=== PATIENT | female | born 1995 | race Caucasian/White ===

== ENCOUNTER 2016-09-28 11:26 | Emergency (ER) | payer SELFPAY ==
--- NOTE | 2016-09-28 11:54 | EDM.PDOC ---
ED HPI GI/ABDOMINAL - General Chief Complaint: Abdominal Pain Stated Complaint: STOMACH PAIN Time Seen by Provider: 09/28/16 11:31 Source of Information: Reports: Patient History Limitations: Reports: No limitations - History of Present Illness INITIAL COMMENTS - FREE TEXT/NARRATIVE: History of present illness: [] Patient started having right upper and lower abdominal pain one week ago patient states it improves when she becomes a dull pain from a sharp pain. She denies any fevers, chills, nausea, vomiting or diarrhea. Patient states she has greater than one week late for her period and usually is regular. She has taken 4 tests and all have been negative, with the last one done 2 days ago. Review of systems: As per history of present illness and below otherwise all systems reviewed and negative. Past medical history: As per history of present illness and as reviewed below otherwise noncontributory. Surgical history: As per history of present illness and as reviewed below otherwise noncontributory. Social history: No reported history of drug or alcohol abuse. Family history: As per history of present illness and as reviewed below otherwise noncontributory. Physical exam: General: Well developed, well nourished in NAD HEENT: Atraumatic, normocephalic, pupils reactive, negative for conjunctival pallor or scleral icterus, mucous membranes moist, throat clear, neck supple, nontender, trachea midline. Lungs: Clear to auscultation, breath sounds equal bilaterally, chest nontender. Heart: S1S2, regular, negative for clicks, rubs, or JVD. Abdomen: Soft, nondistended, nontender. Negative for masses or hepatosplenomegaly. Negative for costovertebral tenderness. Pelvis: Stable nontender. Genitourinary: Deferred. Rectal: Deferred. Extremities: Atraumatic, negative for cords or calf pain. Neurovascular unremarkable. Neuro: Awake, alert, oriented. Cranial nerves II through XII unremarkable. Cerebellum unremarkable. Motor and sensory unremarkable throughout. Exam nonfocal. Diagnostics: [] Labs including CBC chemistry UA and test done which are negative Therapeutics: [] Impression: [], Abdominal Pain, likely GERD Plan: [] Pepcid twice a day for 2 weeks all up PMD return if symptoms worsen Definitive disposition and diagnosis as appropriate pending reevaluation and review of above. - Related Data Allergies/ADRs: Allergies Allergy/AdvReac Type Severity Reaction Status Date / Time No Known Allergies Allergy Verified 09/28/16 11:39 Home Meds: Home Meds . [No Known Home Meds] 09/28/16 [History] Past Medical History [employer] History: Reports: - Past Surgical History Female Surgical History: Reports: section Social & Family History - Family History Family Medical History: Noncontributory - Tobacco Use Smoking Status *Q: Never Smoker - Alcohol Use Days Per Week of Alcohol Use: 2 Number of Drinks Per Day: 2 Total Drinks Per Week: 4 - Recreational Drug Use Recreational Drug Use: No ED ROS GENERAL - Review of Systems Review Of Systems: See Below (See history of present illness) ED EXAM, GI/ABD - Physical Exam Exam: See Below (See history of present illness) Course - Vital Signs Last Recorded V/S: Last Vital Signs Temp 36.4 C 09/28/16 11:39 Pulse 84 09/28/16 11:39 Resp 18 09/28/16 11:39 BP 106/65 09/28/16 11:39 Pulse Ox 99 09/28/16 11:39 - Orders/Labs/Meds Labs: Laboratory Tests 09/28/16 09/28/16 09/28/16 Range/Units 11:45 11:45 11:55 WBC 8.67 (4.0-11.0) K/uL RBC 4.35 (4.30-5.90) M/uL Hgb 13.2 (12.0-16.0) g/dL Hct 39.9 (36.0-46.0) % MCV 91.7 (80.0-98.0) fL MCH 30.3 (27.0-32.0) pg MCHC 33.1 (31.0-37.0) g/dL RDW Std Deviation 49.2 (28.0-62.0) fl RDW Coeff of Ismael 15 (11.0-15.0) % Plt Count 239 (150-400) K/uL MPV 9.40 (7.40-12.00) fL Neut % (Auto) 64.6 (48.0-80.0) % Lymph % (Auto) 25.3 (16.0-40.0) % B[place] % (Auto) 5.1 (0.0-15.0) % Eos % (Auto) 4.4 (0.0-7.0) % Baso % (Auto) 0.6 (0.0-1.5) % Neut # (Auto) 5.6 (1.4-5.7) K/uL Lymph # (Auto) 2.2 (0.6-2.4) K/uL Bucks # (Auto) 0.4 (0.0-0.8) K/uL Eos # (Auto) 0.4 (0.0-0.7) K/uL Baso # (Auto) 0.1 (0.0-0.1) K/uL Nucleated RBC % 0.0 /100WBC Nucleated RBCs # 0 K/uL Sodium (136-146) mmol/L Potassium (3.5-5.1) mmol/L Chloride (98-110) mmol/L Carbon Dioxide (21-31) mmol/L BUN (6.0-23.0) mg/dL Creatinine (0.6-1.5) mg/dL Est Cr Clr Drug Dosing mL/min Estimated GFR (MDRD) ml/min Glucose (60-110) mg/dL Calcium (8.8-10.8) mg/dL Total Bilirubin (0.1-1.5) mg/dL AST (5-40) IU/L ALT (8-54) IU/L Alkaline Phosphatase (40-150) Total Protein (6.0-8.0) g/dL Albumin (3.5-5.0) g/dL Globulin (2.0-3.5) g/dL Albumin/Globulin Ratio (1.3-2.8) Lipase (7-80) U/L Urine Color YELLOW Urine Appearance SLT CLOUDY Urine pH 6.0 (5.0-8.0) Ur Specific [place] 1.025 (1.001-1.035) Urine Protein NEGATIVE (NEGATIVE) mg/dL Urine Glucose (UA) NEGATIVE (NEGATIVE) mg/dL Urine Ketones NEGATIVE (NEGATIVE) mg/dL Urine Occult Blood NEGATIVE (NEGATIVE) Urine Nitrite NEGATIVE (NEGATIVE) Urine Bilirubin NEGATIVE (NEGATIVE) Urine Urobilinogen 0.2 (<2.0) EU/dL Ur Leukocyte Esterase SMALL (NEGATIVE) Urine RBC 0-2 (0-2/HPF) Urine WBC 1-3 (0-5/HPF) Ur Epithelial Cells MODERATE (NONE-FEW) Amorphous Sediment FEW (NEGATIVE) Urine Bacteria FEW (NEGATIVE) Urine HCG, Qual NEGATIVE (NEGATIVE) 09/28/16 Range/Units 11:55 WBC (4.0-11.0) K/uL RBC (4.30-5.90) M/uL Hgb (12.0-16.0) g/dL Hct (36.0-46.0) % MCV (80.0-98.0) fL MCH (27.0-32.0) pg MCHC (31.0-37.0) g/dL RDW Std Deviation (28.0-62.0) fl RDW Coeff of Ismael (11.0-15.0) % Plt Count (150-400) K/uL MPV (7.40-12.00) fL Neut % (Auto) (48.0-80.0) % Lymph % (Auto) (16.0-40.0) % Bucks % (Auto) (0.0-15.0) % Eos % (Auto) (0.0-7.0) % Baso % (Auto) (0.0-1.5) % Neut # (Auto) (1.4-5.7) K/uL Lymph # (Auto) (0.6-2.4) K/uL Bucks # (Auto) (0.0-0.8) K/uL Eos # (Auto) (0.0-0.7) K/uL Baso # (Auto) (0.0-0.1) K/uL Nucleated RBC % /100WBC Nucleated RBCs # K/uL Sodium 140 (136-146) mmol/L Potassium 4.0 (3.5-5.1) mmol/L Chloride 109 (98-110) mmol/L Carbon Dioxide 24 (21-31) mmol/L BUN 15 (6.0-23.0) mg/dL Creatinine 0.7 (0.6-1.5) mg/dL Est Cr Clr Drug Dosing 112.83 mL/min Estimated GFR (MDRD) > 60.0 ml/min Glucose 78 (60-110) mg/dL Calcium 9.1 (8.8-10.8) mg/dL Total Bilirubin 1.0 (0.1-1.5) mg/dL AST 12 (5-40) IU/L ALT 11 (8-54) IU/L Alkaline Phosphatase 65 (40-150) Total Protein 7.3 (6.0-8.0) g/dL Albumin 4.3 (3.5-5.0) g/dL Globulin 3.0 (2.0-3.5) g/dL Albumin/Globulin Ratio 1.4 (1.3-2.8) Lipase 37 (7-80) U/L Urine Color Urine Appearance Urine pH (5.0-8.0) Ur Specific [place] (1.001-1.035) Urine Protein (NEGATIVE) mg/dL Urine Glucose (UA) (NEGATIVE) mg/dL Urine Ketones (NEGATIVE) mg/dL Urine Occult Blood (NEGATIVE) Urine Nitrite (NEGATIVE) Urine Bilirubin (NEGATIVE) Urine Urobilinogen (<2.0) EU/dL Ur Leukocyte Esterase (NEGATIVE) Urine RBC (0-2/HPF) Urine WBC (0-5/HPF) Ur Epithelial Cells (NONE-FEW) Amorphous Sediment (NEGATIVE) Urine Bacteria (NEGATIVE) Urine HCG, Qual (NEGATIVE) Departure - Departure Time of Disposition: 13:04 Disposition: Home, Self-Care 01 Condition: good Clinical Impression: Abdominal pain Qualifiers: Abdominal location: upper abdomen, unspecified Qualified Code(s): R10.10 - Upper abdominal pain, unspecified Referrals: PCP,None [Primary Care Provider] - Forms: ED Department Discharge Additional Instructions: The following information is given to patients seen in the emergency department who are being discharged to home. This information is to outline your options for follow-up care. We provide all patients seen in our emergency department with a follow-up referral. The need for follow-up, as well as the timing and circumstances, are variable depending upon the specifics of your emergency department visit. If you don't have a primary care physician on staff, we will provide you with a referral. We always advise you to contact your personal physician following an emergency department visit to inform them of the circumstance of the visit and for follow-up with them and/or the need for any referrals to a consulting specialist. The emergency department will also refer you to a specialist when appropriate. This referral assures that you have the opportunity for follow-up care with a specialist. All of these measure are taken in an effort to provide you with optimal care, which includes your follow-up. Under all circumstances we always encourage you to contact your private physician who remains a resource for coordinating your care. When calling for follow-up care, please make the office aware that this follow-up is from your recent emergency room visit. If for any reason you are refused follow-up, please contact the [facility] Emergency Department at and asked to speak to the emergency department charge nurse. Take Pepcid twice a day for 2 weeks follow up with her PMD [facility] [address] [place] [id number]
[2016-09-28 12:30] LABS: CHLORIDE,CL 109 mmol/L (98-110); SODIUM,NA 140 mmol/L (136-146)
[2016-09-28 13:38] VITALS: BP 107/59
== END 2016-09-28 13:39 | disposition home or self-care (01) ==
LOC: MW.ED 11:26
DX: R10.11 Right upper quadrant pain (principal); R10.31 Right lower quadrant pain
CPT/HCPCS: 36415; 80053; 81001; 81025; 83690; 85025; 99283; 99284

== ENCOUNTER 2017-05-29 20:40 | Emergency (ER) | payer SELFPAY ==
[2017-05-29] MEDS ORDERED: Aspirin 81 MG Tab.Chew PO ONE (20:55)
[2017-05-29] MEDS ORDERED: Sodium Chloride 0.9% 2.5 ML Syringe FLUSH PRN (20:55)
[2017-05-29] MEDS ORDERED: Ketorolac 30 MG/ML SDV IVPUSH ONE (20:55)
[2017-05-29] MEDS ORDERED: Sodium Chloride 0.9% 10 ML Syringe FLUSH PRN (20:55)
--- NOTE | 2017-05-29 20:59 | EDM.PDOC ---
ED HPI GENERAL MEDICAL PROBLEM - General Stated Complaint: CHETS PAIN Time Seen by Provider: 05/29/17 20:47 - History of Present Illness INITIAL COMMENTS - FREE TEXT/NARRATIVE: HISTORY AND PHYSICAL: History of present illness: The patient is a 22-year-old female who is adopted and has no knowledge of her family history but also has no social history and no pre-existing medical problems and presents with complaints of bilateral chest pain that started on the left and is now on the right as well one week ago. The patient says she has not had any trauma or upper respiratory symptoms no cough no fever no shortness of breath no abdominal pain vomiting or diarrhea. Patient says the pain started to the left of the sternum and then traveled laterally then went down her left side around and is now crossing over to the right side. She has taken some over- the-counter Tylenol and ibuprofen and is not gone away. She has no leg pain or swelling has been eating and drinking normally. Patient denies any smoking history or drug use and her has a vasectomy and she denies and has had regular periods. Patient says that she has difficulty sleeping because the pain is constant and waxes and wanes in intensity. Patient has never had any cardiac workup and does not know her cholesterol or lipids. Review of systems: As per history of present illness and below otherwise all systems reviewed and negative. Past medical history: As per history of present illness and as reviewed below otherwise noncontributory. Surgical history: As per history of present illness and as reviewed below otherwise noncontributory. Social history: No reported history of drug or alcohol abuse. Family history: As per history of present illness and as reviewed below otherwise noncontributory. Physical exam: Gen.: Well-developed well-nourished thin female who is nontoxic and vital signs of been reviewed by me. HEENT: Atraumatic, normocephalic, negative for conjunctival pallor or scleral icterus, mucous membranes moist, throat clear, neck supple, nontender, trachea midline. Lungs: Clear to auscultation, breath sounds equal bilaterally, chest wall with reproducible tenderness bilaterally at the costochondral areas and extending outward in the upper chest wall areas. There is no crepitus defects or deformities with my exam. She has no worker breathing or sensory muscle use Heart: S1S2, regular, negative for clicks, rubs, or JVD. Abdomen: Soft, nondistended, nontender. Negative for masses or hepatosplenomegaly. NABS Pelvis: Stable nontender. Genitourinary: Deferred. Rectal: Deferred. Extremities: Atraumatic, negative for cords or calf pain. Neurovascular unremarkable. No pedal edema or leg asymmetry Neuro: Awake, alert, oriented. Cranial nerves II through XII unremarkable. Cerebellum unremarkable. Motor and sensory unremarkable throughout. Exam nonfocal. Diagnostics: EKG CBC CMP troponin chest x-ray d-dimer Therapeutics: IV O2 monitor Toradol aspirin I discussed all testing results with the patient and at bedside. As the chest pain has been ongoing for a week I did offer her admission but she would like to follow-up in the clinic. It seems very reproducible in nature so I'll advise nonsteroidal use and close follow-up. Impression: Atypical chest pain/chest wall pain Definitive disposition and diagnosis as appropriate pending reevaluation and review of above. Left Upper Chest Pain Score (Numeric/FACES): 4 - Related Data Allergies Allergy/AdvReac Type Severity Reaction Status Date / Time No Known Allergies Allergy Verified 05/29/17 21:06 Home Meds: Home Meds . 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 ED EXAM, GENERAL - Physical Exam Exam: See Below (See dictation) Course - Vital Signs Last Recorded V/S: Last Vital Signs Temp Pulse 98 05/29/17 21:02 Resp 12 05/29/17 21:02 BP 121/58 L 05/29/17 21:02 Pulse Ox 97 05/29/17 21:02 - Orders/Labs/Meds Orders: Active Orders 24 hr Category Date Time Status Cardiac Monitoring [RC] . DIRECTED Care 05/29/17 20:53 Active EKG Documentation Completion [RC] STAT Care 05/29/17 20:53 Active Oxygen Therapy, ED [RC] ASDIRECTED Care 05/29/17 20:53 Active Pulse Oximetry [RC] ASDIRECTED Care 05/29/17 20:53 Active Chest 1V Frontal [CR] Stat Exams 05/29/17 20:55 Taken Sodium Chloride 0.9% [Saline Flush] Med 05/29/17 20:55 Active 10 ml FLUSH ASDIRECTED PRN Sodium Chloride 0.9% [Saline Flush] Med 05/29/17 20:55 Active 2.5 ml FLUSH ASDIRECTED PRN Saline Lock Insert [OM.PC] Stat Oth 05/29/17 20:53 Ordered Medication Orders Sodium Chloride (Saline Flush) 10 ml FLUSH ASDIRECTED PRN PRN Reason: Keep Vein Open Sodium Chloride (Saline Flush) 2.5 ml FLUSH ASDIRECTED PRN PRN Reason: Keep Vein Open Labs: Laboratory Tests 05/29/17 05/29/17 05/29/17 Range/Units 21:05 21:05 21:05 WBC 6.02 (4.0-11.0) K/uL RBC 3.79 L (4.30-5.90) M/uL Hgb 11.9 L (12.0-16.0) g/dL Hct 34.5 L (36.0-46.0) % MCV 91.0 (80.0-98.0) fL MCH 31.4 (27.0-32.0) pg MCHC 34.5 (31.0-37.0) g/dL RDW Std Deviation 45.2 (28.0-62.0) fl RDW Coeff of Ismael 14 (11.0-15.0) % Plt Count 202 (150-400) K/uL MPV 9.40 (7.40-12.00) fL Neut % (Auto) 57.1 (48.0-80.0) % Lymph % (Auto) 26.2 (16.0-40.0) % [place] % (Auto) 10.8 (0.0-15.0) % Eos % (Auto) 5.6 (0.0-7.0) % Baso % (Auto) 0.3 (0.0-1.5) % Neut # (Auto) 3.4 (1.4-5.7) K/uL Lymph # (Auto) 1.6 (0.6-2.4) K/uL [place] # (Auto) 0.7 (0.0-0.8) K/uL Eos # (Auto) 0.3 (0.0-0.7) K/uL Baso # (Auto) 0.0 (0.0-0.1) K/uL Nucleated RBC % 0.0 /100WBC Nucleated RBCs # 0 K/uL D-Dimer, Quantitative 0.27 (0.0-0.52) mg/LFEU Sodium 141 (136-146) mmol/L Potassium 3.8 (3.5-5.1) mmol/L Chloride 110 (98-110) mmol/L Carbon Dioxide 22 (21-31) mmol/L BUN 21 (6.0-23.0) mg/dL Creatinine 0.7 (0.6-1.5) mg/dL Est Cr Clr Drug Dosing 116.81 mL/min Estimated GFR (MDRD) > 60.0 ml/min Glucose 99 (60-110) mg/dL Calcium 9.1 (8.8-10.8) mg/dL Total Bilirubin 0.6 (0.1-1.5) mg/dL AST 12 (5-40) IU/L ALT 10 (8-54) IU/L Alkaline Phosphatase 46 (40-150) Troponin I < 0.10 (0.0-0.29) NG/ML Total Protein 6.5 (6.0-8.0) g/dL Albumin 4.0 (3.5-5.0) g/dL Globulin 2.5 (2.0-3.5) g/dL Albumin/Globulin Ratio 1.6 (1.3-2.8) Meds: Medications Generic Name Dose Route Start Last Admin Trade Name Freq PRN Reason Stop Dose Admin Sodium Chloride 10 ml 05/29/17 20:55 Saline Flush FLUSH ASDIRECTED PRN Keep Vein Open Sodium Chloride 2.5 ml 05/29/17 20:55 Saline Flush FLUSH ASDIRECTED PRN Keep Vein Open Discontinued Medications Generic Name Dose Route Start Last Admin Trade Name Freq PRN Reason Stop Dose Admin Aspirin 324 mg 05/29/17 20:55 05/29/17 21:02 Aspirin PO 05/29/17 20:56 324 mg ONETIME ONE Administration Ketorolac Tromethamine 30 mg 05/29/17 20:55 05/29/17 21:03 Toradol IVPUSH 05/29/17 20:56 30 mg ONETIME ONE Administration Departure - Departure Time of Disposition: 22:02 Disposition: Home, Self-Care 01 Condition: Good Clinical Impression: Atypical chest pain, Chest wall pain - Discharge Information Additional Instructions: The following information is given to patients seen in the emergency department who are being discharged to home. This information is to outline your options for follow-up care. We provide all patients seen in our emergency department with a follow-up referral. The need for follow-up, as well as the timing and circumstances, are variable depending upon the specifics of your emergency department visit. If you don't have a primary care physician on staff, we will provide you with a referral. We always advise you to contact your personal physician following an emergency department visit to inform them of the circumstance of the visit and for follow-up with them and/or the need for any referrals to a consulting specialist. The emergency department will also refer you to a specialist when appropriate. This referral assures that you have the opportunity for followup care with a specialist. All of these measure are taken in an effort to provide you with optimal care, which includes your followup. Under all circumstances we always encourage you to contact your private physician who remains a resource for coordinating your care. When calling for followup care, please make the office aware that this follow-up is from your recent emergency room visit. If for any reason you are refused follow-up, please contact the [facility] emergency department at and ask to speak to the emergency department charge nurse. [facility] Primary care- Internal Medicine and Family [address] [address] Please call our clinic in the morning for follow-up appointment as we discussed and return to ER as needed and as discussed. Please take 600 mg of ibuprofen every 6-8 hours for the next 24 hours and then just as needed. - My Orders Last 24 Hours: My Active Orders 05/29/17 20:53 Cardiac Monitoring [RC] . DIRECTED EKG Documentation Completion [RC] STAT Oxygen Therapy, ED [RC] ASDIRECTED Pulse Oximetry [RC] ASDIRECTED Saline Lock Insert [OM.PC] Stat 05/29/17 20:55 Chest 1V Frontal [CR] Stat Sodium Chloride 0.9% [Saline Flush] 10 ml FLUSH ASDIRECTED PRN Sodium Chloride 0.9% [Saline Flush] 2.5 ml FLUSH ASDIRECTED PRN - Assessment/Plan Last 24 Hours: My Active Orders 05/29/17 20:53 Cardiac Monitoring [RC] . DIRECTED EKG Documentation Completion [RC] STAT Oxygen Therapy, ED [RC] ASDIRECTED Pulse Oximetry [RC] ASDIRECTED Saline Lock Insert [OM.PC] Stat 05/29/17 20:55 Chest 1V Frontal [CR] Stat Sodium Chloride 0.9% [Saline Flush] 10 ml FLUSH ASDIRECTED PRN Sodium Chloride 0.9% [Saline Flush] 2.5 ml FLUSH ASDIRECTED PRN
[2017-05-29 21:06] VITALS: BP 121/58
[2017-05-29 21:34] LABS: CHLORIDE,CL 110 mmol/L (98-110); SODIUM,NA 141 mmol/L (136-146)
--- NOTE | 2017-05-30 09:57 | CR ---
EXAM DATE: 05/29/17 PATIENT'S AGE: 22 Patient: MICHAEL JOHNSON Facility: [place], [place] Site . Site : 1995 Study: XRay Chest [id number]/[id number] 9:34:36 PM Ordering Physician: Emilie Terry Final Report: CHEST 1 VIEW AP INDICATION: Chest pain and shortness of breath IMPRESSION: Patient is slightly rotated. Some asymmetric increased opacity medial right lung base. Superimposition of markings in rotation could be considered. The medial margin however of the right hemidiaphragm is slightly indistinct. Suggest a lateral view for correlation. The left lung is clear. Heart size and vascularity appear normal. Costophrenic angles are sharp with no pneumothorax. Dictated by Brendan Bianchi MD @ May 29 2017 9:45PM (Electronic Signature) Report Signed by Proxy. DWIGHT
== END 2017-05-29 22:10 | disposition home or self-care (01) ==
LOC: MW.ED 20:40
DX: R07.89 Other chest pain (principal)
CPT/HCPCS: 71010; 80053; 84484; 85025; 85379; 93005; 96374; 99285; A9270; J1885

== ENCOUNTER 2017-08-10 17:41 | Emergency (ER) | payer SELFPAY ==
--- NOTE | 2017-08-10 18:18 | EDM.PDOC ---
ED HPI GENERAL MEDICAL PROBLEM - General Chief Complaint: Genitourinary Problem Stated Complaint: STOMACH PAIN/POSSIBLE KIDNEY STONE Time Seen by Provider: 08/10/17 18:06 Source of Information: Reports: Patient History Limitations: Reports: No Limitations - History of Present Illness INITIAL COMMENTS - FREE TEXT/NARRATIVE: HISTORY AND PHYSICAL: History of present illness: Patient is a 22-year-old female who presents to the emergency room today with complaints of abdominal pain 1 week. States the pain originates in her right flank and wraps to her right upper abdomen. She states she has "kidney infections all the time". She would like a test done today as she states her menstraul period was only 3 days and normal duration of her menses is 5 days. LMP 07/20/2017. States she's been using Tylenol and ibuprofen for pain without relief. Denies any dysuria, constipation or diarrhea. Denies any fever or chills. Denies any nausea, vomiting, chest pain or shortness of breath. Review of systems: As per history of present illness and below otherwise all systems reviewed and negative. Past medical history: As per history of present illness and as reviewed below otherwise noncontributory. Surgical history: As per history of present illness and as reviewed below otherwise noncontributory. Social history: No reported history of drug or alcohol abuse. Family history: As per history of present illness and as reviewed below otherwise noncontributory. Physical exam: General: Well-developed and well-nourished 22-year-old female. Alert and oriented. Nontoxic appearing and in no acute distress. HEENT: Atraumatic, normocephalic, pupils reactive, negative for conjunctival pallor or scleral icterus, mucous membranes moist, throat clear, neck supple, nontender, trachea midline. Lungs: Clear to auscultation, breath sounds equal bilaterally, chest nontender. Heart: S1S2, regular rate and rhythm Abdomen: Soft, nondistended, nontender. Negative for masses or hepatosplenomegaly. Mild costovertebral tenderness to left. Pelvis: Stable nontender. Genitourinary: Deferred. Rectal: Deferred. Extremities: Atraumatic, moves all extremities per self, negative for cords or calf pain. Neurovascular unremarkable. Neuro: Awake, alert, oriented. Cranial nerves II through XII unremarkable. Cerebellum unremarkable. Motor and sensory unremarkable throughout. Exam nonfocal. Diagnostics: UA, urine , CBC, CMP Therapeutics: [] Impression: Abdominal Pain, non-specific Plan: 1. Lab work was all normal today. Symptoms are likely viral in nature. Please have a bland diet for the next 24-48 hours. Encourage fluids to prevent dehydration. 2. May use Tylenol and/or ibuprofen as needed for pain management. Gentle heat may be used for comfort. 3. Follow-up with your primary caregiver in the next 1-2 days. Return to the ED as needed and as discussed Definitive disposition and diagnosis as appropriate pending reevaluation and review of above. Right Upper Abdominal Pain Score (Numeric/FACES): 2 - Related Data Allergies Allergy/AdvReac Type Severity Reaction Status Date / Time No Known Allergies Allergy Verified 08/10/17 18:06 Home Meds: Home Meds . 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 ED EXAM, GI/ABD - Physical Exam Exam: See Below (See dictation) Course - Vital Signs Last Recorded V/S: Last Vital Signs Temp 96.0 F 08/10/17 18:02 Pulse 76 08/10/17 18:02 Resp 18 08/10/17 18:02 BP 106/66 08/10/17 18:02 Pulse Ox 98 08/10/17 18:02 - Orders/Labs/Meds Orders: Active Orders 24 hr Category Date Time Status CULTURE URINE [RM] Stat Lab 08/10/17 18:08 Received Labs: Laboratory Tests 08/10/17 08/10/17 08/10/17 Range/Units 17:43 17:43 19:09 WBC 9.11 (4.0-11.0) K/uL RBC 4.29 L (4.30-5.90) M/uL Hgb 13.7 (12.0-16.0) g/dL Hct 40.3 (36.0-46.0) % MCV 93.9 (80.0-98.0) fL MCH 31.9 (27.0-32.0) pg MCHC 34.0 (31.0-37.0) g/dL RDW Std Deviation 45.5 (28.0-62.0) fl RDW Coeff of Ismael 13 (11.0-15.0) % Plt Count 264 (150-400) K/uL MPV 9.20 (7.40-12.00) fL Neut % (Auto) 70.9 (48.0-80.0) % Lymph % (Auto) 21.8 (16.0-40.0) % Cooke % (Auto) 6.0 (0.0-15.0) % Eos % (Auto) 1.1 (0.0-7.0) % Baso % (Auto) 0.2 (0.0-1.5) % Neut # (Auto) 6.5 H (1.4-5.7) K/uL Lymph # (Auto) 2.0 (0.6-2.4) K/uL Cooke # (Auto) 0.6 (0.0-0.8) K/uL Eos # (Auto) 0.1 (0.0-0.7) K/uL Baso # (Auto) 0.0 (0.0-0.1) K/uL Nucleated RBC % 0.0 /100WBC Nucleated RBCs # 0 K/uL Sodium (136-146) mmol/L Potassium (3.5-5.1) mmol/L Chloride (98-110) mmol/L Carbon Dioxide (21-31) mmol/L BUN (6.0-23.0) mg/dL Creatinine (0.6-1.5) mg/dL Est Cr Clr Drug Dosing mL/min Estimated GFR (MDRD) ml/min Glucose (60-110) mg/dL Calcium (8.8-10.8) mg/dL Total Bilirubin (0.1-1.5) mg/dL AST (5-40) IU/L ALT (8-54) IU/L Alkaline Phosphatase (40-150) Total Protein (6.0-8.0) g/dL Albumin (3.5-5.0) g/dL Globulin (2.0-3.5) g/dL Albumin/Globulin Ratio (1.3-2.8) Urine Color YELLOW Urine Appearance CLEAR Urine pH 6.5 (5.0-8.0) Ur Specific [place]ne 1.020 (1.001-1.035) Urine Protein NEGATIVE (NEGATIVE) mg/dL Urine Glucose (UA) NEGATIVE (NEGATIVE) mg/dL Urine Ketones NEGATIVE (NEGATIVE) mg/dL Urine Occult Blood NEGATIVE (NEGATIVE) Urine Nitrite NEGATIVE (NEGATIVE) Urine Bilirubin NEGATIVE (NEGATIVE) Urine Urobilinogen 0.2 (<2.0) EU/dL Ur Leukocyte Esterase SMALL (NEGATIVE) Urine RBC 0-1 (0-2/HPF) Urine WBC 1-3 (0-5/HPF) Ur Epithelial Cells RARE (NONE-FEW) Urine Bacteria RARE (NEGATIVE) Urine HCG, Qual NEGATIVE (NEGATIVE) 08/10/17 Range/Units 19:09 WBC (4.0-11.0) K/uL RBC (4.30-5.90) M/uL Hgb (12.0-16.0) g/dL Hct (36.0-46.0) % MCV (80.0-98.0) fL MCH (27.0-32.0) pg MCHC (31.0-37.0) g/dL RDW Std Deviation (28.0-62.0) fl RDW Coeff of Ismael (11.0-15.0) % Plt Count (150-400) K/uL MPV (7.40-12.00) fL Neut % (Auto) (48.0-80.0) % Lymph % (Auto) (16.0-40.0) % Cooke % (Auto) (0.0-15.0) % Eos % (Auto) (0.0-7.0) % Baso % (Auto) (0.0-1.5) % Neut # (Auto) (1.4-5.7) K/uL Lymph # (Auto) (0.6-2.4) K/uL Cooke # (Auto) (0.0-0.8) K/uL Eos # (Auto) (0.0-0.7) K/uL Baso # (Auto) (0.0-0.1) K/uL Nucleated RBC % /100WBC Nucleated RBCs # K/uL Sodium 139 (136-146) mmol/L Potassium 4.2 (3.5-5.1) mmol/L Chloride 109 (98-110) mmol/L Carbon Dioxide 22 (21-31) mmol/L BUN 10 (6.0-23.0) mg/dL Creatinine 0.7 (0.6-1.5) mg/dL Est Cr Clr Drug Dosing 121.55 mL/min Estimated GFR (MDRD) > 60.0 ml/min Glucose 85 (60-110) mg/dL Calcium 9.1 (8.8-10.8) mg/dL Total Bilirubin 0.8 (0.1-1.5) mg/dL AST 15 (5-40) IU/L ALT 11 (8-54) IU/L Alkaline Phosphatase 59 (40-150) Total Protein 6.5 (6.0-8.0) g/dL Albumin 3.9 (3.5-5.0) g/dL Globulin 2.6 (2.0-3.5) g/dL Albumin/Globulin Ratio 1.5 (1.3-2.8) Urine Color Urine Appearance Urine pH (5.0-8.0) Ur Specific [place] (1.001-1.035) Urine Protein (NEGATIVE) mg/dL Urine Glucose (UA) (NEGATIVE) mg/dL Urine Ketones (NEGATIVE) mg/dL Urine Occult Blood (NEGATIVE) Urine Nitrite (NEGATIVE) Urine Bilirubin (NEGATIVE) Urine Urobilinogen (<2.0) EU/dL Ur Leukocyte Esterase (NEGATIVE) Urine RBC (0-2/HPF) Urine WBC (0-5/HPF) Ur Epithelial Cells (NONE-FEW) Urine Bacteria (NEGATIVE) Urine HCG, Qual (NEGATIVE) Departure - Departure Time of Disposition: 19:44 Disposition: Home, Self-Care 01 Clinical Impression: Nonspecific abdominal pain - Discharge Information Instructions: Abdominal Pain, Adult Referrals: PCP,None [Primary Care Provider] - Forms: ED Department Discharge Additional Instructions: My general discharge The following information is given to patients seen in the emergency department who are being discharged to home. This information is to outline your options for follow-up care. We provide all patients seen in our emergency department with a follow-up referral. The need for follow-up, as well as the timing and circumstances, are variable depending upon the specifics of your emergency department visit. If you don't have a primary care physician on staff, we will provide you with a referral. We always advise you to contact your personal physician following an emergency department visit to inform them of the circumstance of the visit and for follow-up with them and/or the need for any referrals to a consulting specialist. The emergency department will also refer you to a specialist when appropriate. This referral assures that you have the opportunity for follow-up care with a specialist. All of these measure are taken in an effort to provide you with optimal care, which includes your follow-up. Under all circumstances we always encourage you to contact your private physician who remains a resource for coordinating your care. When calling for follow-up care, please make the office aware that this follow-up is from your recent emergency room visit. If for any reason you are refused follow-up, please contact the [facility] Emergency Department at and asked to speak to the emergency department charge nurse. [facility] [address] [place] [id number] 1. Lab work was all normal today (Negative , No UTI, and No evidence of abdominal infection). Symptoms are likely viral in nature. Please have a bland diet for the next 24-48 hours. Encourage fluids to prevent dehydration. 2. May use Tylenol and/or ibuprofen as needed for pain management. Gentle heat may be used for comfort. 3. Follow-up with your primary caregiver in the next 1-2 days. Return to the ED as needed and as discussed - My Orders Last 24 Hours: My Active Orders 08/10/17 18:08 CULTURE URINE [RM] Stat - Assessment/Plan Last 24 Hours: My Active Orders 08/10/17 18:08 CULTURE URINE [RM] Stat
[2017-08-10 19:39] LABS: CHLORIDE,CL 109 mmol/L (98-110); SODIUM,NA 139 mmol/L (136-146)
[2017-08-10 19:58] VITALS: BP 97/65
== END 2017-08-10 19:59 | disposition home or self-care (01) ==
LOC: MW.ED 17:41
DX: R10.11 Right upper quadrant pain (principal)
CPT/HCPCS: 36415; 80053; 81001; 81025; 85025; 87086; 99283; 99284

== ENCOUNTER 2017-08-22 11:06 | Emergency (ER) | payer BC ==
[2017-08-22 11:16] VITALS: BP 103/70
[2017-08-22] MEDS ORDERED: Benzocaine 20% Topical Spray UD MUCMEM ONE (11:51)
[2017-08-22] MEDS ORDERED: Lidocaine 2% Viscous Solution 15 ML Cup PO ONE (11:51)
--- NOTE | 2017-08-22 11:54 | EDM.PDOC ---
ED HPI GENERAL MEDICAL PROBLEM - General Chief Complaint: ENT Problem Stated Complaint: TOOTHACHE Time Seen by Provider: 08/22/17 11:45 Source of Information: Reports: Patient History Limitations: Reports: No Limitations - History of Present Illness INITIAL COMMENTS - FREE TEXT/NARRATIVE: HISTORY AND PHYSICAL: History of present illness: [Patient comes to the emergency room complaining of tooth pain. Cracked her tooth approximately one year ago. She's had some mild discomfort for the past week but over the past 2 days she's developed swelling to her cheek and gums. She called a local dentist today and they can get her in for an appointment tomorrow but recommended that she be evaluated in the emergency room today. She denies fever and chills chest pain shortness of breath and difficulty breathing. No abdominal pain nausea or vomiting. Last period ended yesterday, she denies . She has not taken any medication for her symptoms.] Review of systems: As per history of present illness and below otherwise all systems reviewed and negative. Past medical history: As per history of present illness and as reviewed below otherwise noncontributory. Surgical history: As per history of present illness and as reviewed below otherwise noncontributory. Social history: No reported history of drug or alcohol abuse. Family history: As per history of present illness and as reviewed below otherwise noncontributory. Physical exam: HEENT: Atraumatic, normocephalic. Face is nontender with palpation. TMs are pearly gutierrez and without erythema bilaterally. Oral mucous membranes are pink and moist. No tonsillar swelling erythema or exudate. Tooth #15 is cracked and shows decay. Surrounding gum tissue is erythematous and swollen. She is tender with palpation over this tooth and gums. No facial tenderness. Lungs: Clear to auscultation, breath sounds equal bilaterally. Heart: S1S2, regular rate and rhythm. Abdomen: Soft, nondistended, nontender. Pelvis: Stable nontender. Genitourinary: Deferred. Rectal: Deferred. Extremities: Neurovascular unremarkable. Neuro: Awake, alert, oriented. Motor and sensory unremarkable throughout. Exam nonfocal. Therapeutics: [Dental balls] Impression: [Dental pain] Plan: [Rx written for amoxicillin 500 mg #32 sig 2 by mouth now, then 13 times daily 0 refills. Tylenol alternating with ibuprofen as needed for discomfort. Dental balls. Follow-up with dentist tomorrow as scheduled. Strict return precautions are reviewed. She is in agreement with today's plan.] Definitive disposition and diagnosis as appropriate pending reevaluation and review of above. Left Tooth/Teeth Pain Score (Numeric/FACES): 6 - Related Data Allergies Allergy/AdvReac Type Severity Reaction Status Date / Time No Known Allergies Allergy Verified 08/22/17 11:16 Home Meds: Home Meds . 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 ED EXAM, ENT - Physical Exam Exam: See Below Course - Vital Signs Last Recorded V/S: Last Vital Signs Temp 98.0 F 08/22/17 11:15 Pulse 58 L 08/22/17 11:15 Resp 18 08/22/17 11:15 BP 103/70 08/22/17 11:15 Pulse Ox 98 08/22/17 11:15 - Orders/Labs/Meds Meds: Medications Discontinued Medications Generic Name Dose Route Start Last Admin Trade Name Gerard PRN Reason Stop Dose Admin Benzocaine 2 each 08/22/17 11:51 Hurricaine One 20% MUCMEM 08/22/17 11:52 ONETIME ONE Lidocaine HCl 15 ml 08/22/17 11:51 Xylocaine 2% Viscous PO 08/22/17 11:52 ONETIME ONE Departure - Departure Time of Disposition: 11:55 Disposition: Home, Self-Care 01 Condition: Good Clinical Impression: Pain, dental - Discharge Information Referrals: PCP,None [Primary Care Provider] - Forms: ED Department Discharge Additional Instructions: The following information is given to patients seen in the emergency department who are being discharged to home. This information is to outline your options for follow-up care. We provide all patients seen in our emergency department with a follow-up referral. The need for follow-up, as well as the timing and circumstances, are variable depending upon the specifics of your emergency department visit. If you don't have a primary care physician on staff, we will provide you with a referral. We always advise you to contact your personal physician following an emergency department visit to inform them of the circumstance of the visit and for follow-up with them and/or the need for any referrals to a consulting specialist. The emergency department will also refer you to a specialist when appropriate. This referral assures that you have the opportunity for follow-up care with a specialist. All of these measure are taken in an effort to provide you with optimal care, which includes your follow-up. Under all circumstances we always encourage you to contact your private physician who remains a resource for coordinating your care. When calling for follow-up care, please make the office aware that this follow-up is from your recent emergency room visit. If for any reason you are refused follow-up, please contact the [facility] emergency department at and asked to speak to the emergency department charge nurse. [facility] [address] [place] [id number] Follow-up with your local primary care provider at the clinic listed above in 48 -72 hours. Follow-up with the dentist as scheduled. Take antibiotic as prescribed. He may alternate Tylenol with ibuprofen as needed for discomfort. Use dental balls. Return to ER as needed as discussed.
== END 2017-08-22 12:07 | disposition home or self-care (01) ==
LOC: MW.ED 11:06
DX: K08.89 Other specified disorders of teeth and supporting structures (principal); K03.81 Cracked tooth; K02.9 Dental caries, unspecified
CPT/HCPCS: 99282; A9270; 99283

== ENCOUNTER 2017-10-05 19:37 | Emergency (ER) | payer BC ==
[2017-10-05] MEDS ORDERED: Lidocaine 2% Viscous Solution 100 ML Bottle PO ONE (19:45)
[2017-10-05] MEDS ORDERED: Benzocaine 20% Topical Spray UD MUCMEM ONE (19:45)
--- NOTE | 2017-10-05 19:45 | EDM.PDOC ---
ED HPI GENERAL MEDICAL PROBLEM - General Chief Complaint: ENT Problem Stated Complaint: TOOTH PAIN Time Seen by Provider: 10/05/17 19:45 Source of Information: Reports: Patient History Limitations: Reports: No Limitations - History of Present Illness INITIAL COMMENTS - FREE TEXT/NARRATIVE: HISTORY AND PHYSICAL: History of present illness: Patient is a 22-year-old female who presents to the emergency room today with complaints of dental pain to the left lower jaw. She states approximately one year ago she had cracked tooth and since that time has been dealing with dental pain. She reports she "can't afford to get it pulled... they want $800". She presents here today looking for pain medication as she states the topical lidocaine/benzocaine (Dental Balls) she received through our ER last month (11/2017) is not helping the discomfort. Review of systems: As per history of present illness and below otherwise all systems reviewed and negative. Past medical history: As per history of present illness and as reviewed below otherwise noncontributory. Surgical history: As per history of present illness and as reviewed below otherwise noncontributory. Social history: No reported history of drug or alcohol abuse. Family history: As per history of present illness and as reviewed below otherwise noncontributory. Physical exam: General: Well-developed and well-nourished 22-year-old female. Alert and oriented. Nontoxic appearing and in no acute distress. HEENT: Atraumatic, normocephalic, pupils equal and reactive bilaterally, negative for conjunctival pallor or scleral icterus, mucous membranes moist, throat clear, neck supple, no obvious gum swelling or erythema noted, dental health is fair, nontender, trachea midline. No drooling or trismus noted. No meningeal signs Lungs: Clear to auscultation, breath sounds equal bilaterally, chest nontender. Heart: S1S2, regular rate and rhythm without overt murmur Abdomen: Soft, nondistended, nontender. Negative for masses or hepatosplenomegaly. Negative for costovertebral tenderness. Pelvis: Stable nontender. Genitourinary: Deferred. Rectal: Deferred. Skin: Intact, warm, dry. No lesions or rashes noted. Extremities: Atraumatic, negative for cords or calf pain. Neurovascular unremarkable. Neuro: Awake, alert, oriented. Cranial nerves II through XII unremarkable. Cerebellum unremarkable. Motor and sensory unremarkable throughout. Exam nonfocal. Notes: Patient states that she does not want an antibiotic as she has had these prescribed for her previously and "it doesn't help at all". She states her main concern today is for pain management. She states she is not able or willing to go to the dentist as they are requiring $800 upfront prior to her having her tooth removed. She has not used any Tylenol or ibuprofen [id number]. She did receive dental balls through our emergency room last month, when she presented with the same complaint. States that they're not alleviating her discomfort. We discussed definitive care and the importance of following up with her dentist. We'll prescribe Cataflam 50 mg one tab 3 times a day. With food. Supportive care measures were reviewed. She voices understanding. Diagnostics: [] Therapeutics: Dental balls Impression: Dentalgia Plan: 1. Please use the dental balls as directed. He may apply one along the gumline as needed. Do not swallow. 2. Cataflam, one tab 3 times daily as needed for pain. Please take this with food. Do not take any additional NSAID such as ibuprofen or Aleve while taking this medication. You may alternate this with Tylenol 3. For definitive care please follow-up with your dentist. Turn to the ED as needed and as discussed. Definitive disposition and diagnosis as appropriate pending reevaluation and review of above. Duration: Chronic dental pain Pain Score (Numeric/FACES): 8 - Related Data Allergies Allergy/AdvReac Type Severity Reaction Status Date / Time No Known Allergies Allergy Verified 10/05/17 19:43 Home Meds: Home Meds . 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 ED EXAM, ENT - Physical Exam Exam: See Below (See dictation) Course - Vital Signs Last Recorded V/S: Last Vital Signs Temp 97.5 F 10/05/17 19:43 Pulse 85 10/05/17 19:43 Resp 18 10/05/17 19:43 BP 114/81 10/05/17 19:43 Pulse Ox 98 10/05/17 19:43 - Orders/Labs/Meds Meds: Medications Discontinued Medications Generic Name Dose Route Start Last Admin Trade Name Gerard PRN Reason Stop Dose Admin Benzocaine 2 each 10/05/17 19:45 Hurricaine One 20% MUCMEM 10/05/17 19:46 ONETIME ONE Lidocaine HCl 20 ml 10/05/17 19:45 Xylocaine 2% Viscous PO 10/05/17 19:46 ONETIME ONE Departure - Departure Time of Disposition: 19:56 Disposition: Home, Self-Care 01 Clinical Impression: Dentalgia - Discharge Information Referrals: PCP,None [Primary Care Provider] - Forms: ED Department Discharge Additional Instructions: The following information is given to patients seen in the emergency department who are being discharged to home. This information is to outline your options for follow-up care. We provide all patients seen in our emergency department with a follow-up referral. The need for follow-up, as well as the timing and circumstances, are variable depending upon the specifics of your emergency department visit. If you don't have a primary care physician on staff, we will provide you with a referral. We always advise you to contact your personal physician following an emergency department visit to inform them of the circumstance of the visit and for follow-up with them and/or the need for any referrals to a consulting specialist. The emergency department will also refer you to a specialist when appropriate. This referral assures that you have the opportunity for follow-up care with a specialist. All of these measure are taken in an effort to provide you with optimal care, which includes your follow-up. Under all circumstances we always encourage you to contact your private physician who remains a resource for coordinating your care. When calling for follow-up care, please make the office aware that this follow-up is from your recent emergency room visit. If for any reason you are refused follow-up, please contact the [facility] Emergency Department at and asked to speak to the emergency department charge nurse. [facility] [address] [place] [id number] 1. Please use the dental balls as directed. He may apply one along the gumline as needed. Do not swallow. 2. Cataflam, one tab 3 times daily as needed for pain. Please take this with food. Do not take any additional NSAID such as ibuprofen or Aleve while taking this medication. You may alternate this with Tylenol 3. For definitive care please follow-up with your dentist. Turn to the ED as needed and as discussed.
[2017-10-05] MEDS ORDERED: Lidocaine 2% Viscous Solution 15 ML Cup ONE (19:53)
[2017-10-06 01:54] VITALS: BP 103/71
== END 2017-10-05 20:08 | disposition home or self-care (01) ==
LOC: MW.ED 19:37
DX: K08.89 Other specified disorders of teeth and supporting structures (principal)
CPT/HCPCS: 99282; A9270

== ENCOUNTER 2017-12-14 01:40 | Emergency (ER) | payer BC | END 2017-12-14 02:11 | disposition left against medical advice (07) | LOC: MW.ED 01:40 | DX: Z53.21 Procedure and treatment not carried out due to patient leaving prior to being seen by health care provider (principal) ==

== ENCOUNTER 2018-01-03 01:08 | Emergency (ER) | payer BC ==
[2018-01-03] MEDS ORDERED: Acetaminophen/HYDROcodone 325-5 MG Tab PO ONE (01:26)
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
[2018-01-03 02:45] VITALS: BP 115/68
--- NOTE | 2018-01-03 10:41 | CR ---
EXAM DATE: 01/03/18 PATIENT'S AGE: 22 Patient: MICHAEL JOHNSON Facility: [place], [place] Site . Site : 1995 Study: XRay Extremity Right [id number]/18/2018 2:14:13 AM Ordering Physician: Emilie Terry Final Report: INDICATION: Right hand injury. TECHNIQUE: Right hand, two views. COMPARISON: None FINDINGS: Bones: Alignment is normal. No acute fractures or aggressive osseous lesions seen. Joint spaces: The carpal and metacarpal-phalangeal joints are unremarkable in appearance. The interphalangeal joints are normal in appearance. Soft tissues: Unremarkable. No radiopaque foreign bodies are noted. IMPRESSION: 1. No acute osseous injuries are identified. Dictated by Janes Barrios MD @ 01/03/2018 2:24:06 AM Dictated by: Janes Barrios MD @ 01/03/2018 02:24:14 (Electronic Signature) Report Signed by Proxy. DWIGHT
--- NOTE | 2018-01-03 10:42 | CR ---
EXAM DATE: 01/03/18 PATIENT'S AGE: 22 Patient: MICHAEL JOHNSON Facility: [place], [place] Site . Site : 1995 Study: XRay Extremity Right [id number]/18/2018 2:14:32 AM Ordering Physician: Emilie Terry Final Report: INDICATION: Wrist injury. TECHNIQUE: Right wrist, two views COMPARISON: None FINDINGS: Bones: There is normal alignment of the osseous structures with preservation of the carpal rows. No acute fractures or aggressive bone lesions are identified. Joint spaces: The radiocarpal, carpal, and carpometacarpal joints are unremarkable in appearance. Soft tissues: Unremarkable. No radiopaque foreign bodies are noted. IMPRESSION: 1. No acute osseous injuries are identified. Dictated by Janes Barrios MD @ 01/03/2018 2:26:00 AM Dictated by: Janes Barrios MD @ 01/03/2018 02:26:07 (Electronic Signature) Report Signed by Proxy. [facility] MEDICAL CENTERKvng
== END 2018-01-03 02:56 | disposition home or self-care (01) ==
LOC: MW.ED 01:08
DX: S60.211A Contusion of right wrist, initial encounter (principal); W22.8XXA Striking against or struck by other objects, initial encounter
CPT/HCPCS: 73100; 73120; 99283; A9270

== ENCOUNTER 2018-01-28 22:19 | Emergency (ER) | payer BC ==
--- NOTE | 2018-01-28 23:07 | EDM.PDOC ---
ED HPI GENERAL MEDICAL PROBLEM - General Stated Complaint: PAIN IN ABDOMEN, BLEEDING, POSSIBLY PREGNATN. Time Seen by Provider: 01/28/18 22:58 Source of Information: Reports: Patient History Limitations: Reports: No Limitations - History of Present Illness INITIAL COMMENTS - FREE TEXT/NARRATIVE: HISTORY AND PHYSICAL: History of present illness: [] Review of systems: As per history of present illness and below otherwise all systems reviewed and negative. Past medical history: As per history of present illness and as reviewed below otherwise noncontributory. Surgical history: As per history of present illness and as reviewed below otherwise noncontributory. Social history: No reported history of drug or alcohol abuse. Family history: As per history of present illness and as reviewed below otherwise noncontributory. Physical exam: HEENT: Atraumatic, normocephalic, pupils reactive, negative for conjunctival pallor or scleral icterus, mucous membranes moist, throat clear, neck supple, nontender, trachea midline. Lungs: Clear to auscultation, breath sounds equal bilaterally, chest nontender. Heart: S1S2, regular, negative for clicks, rubs, or JVD. Abdomen: Soft, nondistended, nontender. Negative for masses or hepatosplenomegaly. Negative for costovertebral tenderness. Pelvis: Stable nontender. Genitourinary: Deferred. Rectal: Deferred. Extremities: Atraumatic, negative for cords or calf pain. Neurovascular unremarkable. Neuro: Awake, alert, oriented. Cranial nerves II through XII unremarkable. Cerebellum unremarkable. Motor and sensory unremarkable throughout. Exam nonfocal. Diagnostics: [] Therapeutics: [] Impression: [] Plan: [] Definitive disposition and diagnosis as appropriate pending reevaluation and review of above. - Related Data Allergies Allergy/AdvReac Type Severity Reaction Status Date / Time No Known Allergies Allergy Verified 01/03/18 01:28 Home Meds: Home Meds . 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: Musculoskeletal History: Reports: None Neurological History: Reports: None Psychiatric History: Reports: Anxiety, Depression Endocrine/Metabolic History: Reports: None Hematologic History: Reports: None Oncologic (Cancer) History: Reports: None Dermatologic History: Reports: None - Infectious Disease History Infectious Disease History: Reports: Chicken Pox - Past Surgical History Head Surgeries/Procedures: Reports: None Female Surgical History: Reports: Section Social & Family History - Family History Family Medical History: Noncontributory - Caffeine Use Caffeine Use: Reports: None Departure - Discharge Information Referrals: PCP,None [Primary Care Provider] -
== END 2018-01-28 23:38 | disposition left against medical advice (07) ==
LOC: MW.ED 22:19
DX: Z53.20 Procedure and treatment not carried out because of patient's decision for unspecified reasons (principal)

== ENCOUNTER 2018-02-12 16:25 | Emergency (ER) | payer BC | END 2018-02-12 16:50 | disposition left against medical advice (07) | LOC: MW.ED 16:25 | DX: Z53.21 Procedure and treatment not carried out due to patient leaving prior to being seen by health care provider (principal) ==

== ENCOUNTER 2018-03-24 11:28 | Emergency (ER) | payer BC ==
[2018-03-24 11:51] VITALS: BP 102/60
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
--- NOTE | 2018-03-26 14:14 | US ---
EXAM DATE: 03/24/18 PATIENT'S AGE: 22 Patient: MICHAEL JOHNSON Facility: [place], [place] Site . Site : 1995 Study: US OB Pelvis [id number] 2:21:07 PM Ordering Physician: Christiano Murcia Final Report: HISTORY: Right pelvic pain. Serum beta HCG of 47. TECHNIQUE: Transvaginal obstetrical ultrasound. COMPARISON: No prior. FINDINGS: The endometrial stripe thickness is approximately 19 mm. No intrauterine is seen. Thin sliver of fluid within the upper endometrial canal. Probable cervical nabothian cysts. - No complex adnexal mass separate from the ovaries to suggest ectopic . No ovarian torsion. Small cyst or follicle within the left ovary. 1.7 cm hypoechoic structure within the right ovary could represent a corpus luteum. Trace amount of fluid adjacent to the right ovary. IMPRESSION: 1. Endometrial stripe thickness of 19 mm. No intrauterine seen. 2. No complex adnexal mass separate from the ovaries to suggest an ectopic . 3. No ovarian torsion. Dictated by Gucci Morales MD @ 03/24/2018 3:04:01 PM Dictated by: Gucci Morales MD @ 03/24/2018 15:04:07 (Electronic Signature) Report Signed by Proxy. DWIGHT
== END 2018-03-24 14:20 | disposition left against medical advice (07) ==
LOC: MW.ED 11:28
DX: O23.41 Unspecified infection of urinary tract in pregnancy, first trimester (principal)
CPT/HCPCS: 36415; 76801; 76801-26; 81001; 81025; 84702; 99283; 99284-25

== ENCOUNTER 2018-10-25 18:06 | Observation (INO) | payer BC | END 2018-10-25 20:30 | disposition home or self-care (01) | LOC: MW.OB 18:06 | PROVIDERS: ADMIT Obstetrics & Gynecology; ATTEND Obstetrics & Gynecology | DX: O99.89 Other specified diseases and conditions complicating pregnancy, childbirth and the puerperium (principal); N89.8 Other specified noninflammatory disorders of vagina; Z3A.28 28 weeks gestation of pregnancy | CPT/HCPCS: 59025; 84112 ==

== ENCOUNTER 2018-11-11 19:10 | Observation (INO) | payer BC | END 2018-11-11 21:30 | disposition home or self-care (01) | LOC: MW.OB 19:10 | PROVIDERS: ADMIT Obstetrics & Gynecology; ATTEND Obstetrics & Gynecology | DX: O99.89 Other specified diseases and conditions complicating pregnancy, childbirth and the puerperium (principal); R42 Dizziness and giddiness; H53.8 Other visual disturbances; O34.219 Maternal care for unspecified type scar from previous cesarean delivery; Z3A.28 28 weeks gestation of pregnancy | CPT/HCPCS: 59025; 81003 ==

== ENCOUNTER 2018-11-15 14:13 | Observation (INO) | payer BC | END 2018-11-15 17:55 | disposition home or self-care (01) | LOC: MW.OBCHECK 14:13 → MW.OB 14:18 | PROVIDERS: ADMIT Obstetrics & Gynecology; ATTEND Obstetrics & Gynecology | DX: O46.93 Antepartum hemorrhage, unspecified, third trimester (principal); Z3A.38 38 weeks gestation of pregnancy | CPT/HCPCS: 36415; 59025; 85027; 85384; 85610; 85730; G0378 ==

== ENCOUNTER 2018-11-19 04:58 | Inpatient (IN) | payer BC ==
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
[2018-11-19] MEDS ORDERED: ceFAZolin 1 GM in Premix Bag 1 BAG IV ONE (05:04)
[2018-11-19] MEDS ORDERED: Sodium Chloride 0.9% 10 ML SDV IV PRN (05:04)
[2018-11-19] MEDS ORDERED: Sodium Chloride 0.9% 2.5 ML Syringe FLUSH PRN (05:04)
[2018-11-19] MEDS ORDERED: Citric Acid/Sodium Citrate Solution 30 ML Cup PO ONE (05:04)
[2018-11-19] MEDS ORDERED: Sodium Chloride 0.9% 10 ML Syringe FLUSH PRN (05:04)
[2018-11-19] MEDS ORDERED: Ondansetron 4 MG/2 ML SDV IVPUSH PRN ×3 (05:04→09:36)
[2018-11-19] MEDS ORDERED: Oxytocin/0.9 % Sodium Chloride 30 UNIT/500 ML BAG IV SCH (05:15)
[2018-11-19] MEDS: Lactated Ringers 1,000 ML IV SCH ×3 (05:20→07:53)
--- NOTE | 2018-11-19 07:12 | PCM.PREANE ---
Preanesthetic Assessment - Anesthesia/Transfusion/Family Hx Anesthesia History: Prior Anesthesia Without Reaction (C/S was emergency- no anesthesia per patient received- PTSD afterwards) Other Type of Anesthesia Reaction Comment: Pt adopted Family History of Anesthesia Reaction: No Transfusion History: No Prior Transfusion(s) Type of Transfusion Reactions: Reports: Unknown Intubation History: Unknown - Review of Systems General: No Symptoms Pulmonary: No Symptoms Cardiovascular: No Symptoms Gastrointestinal: No Symptoms Neurological: No Symptoms Other: Reports: None - Physical Assessment Height: 5 ft 7 in Weight: 77.111 kg ASA Class: 2 Mental Status: Alert & Oriented x3 Airway Class: Mallampati = 2 Dentition: Reports: Normal Dentition, Broken Tooth/Teeth (x3 back side upper left and right and lower right) Thyro-Mental Finger Breadths: 3 Mouth Opening Finger Breadths: 3 ROM/Head Extension: Full Lungs: Clear to Auscultation, Normal Respiratory Effort Cardiovascular: Regular Rate, Regular Rhythm - Lab Values: Laboratory Last Values WBC 8.23 K/uL (4.0-11.0) 11/19/18 05:53 RBC 3.52 M/uL (4.30-5.90) L 11/19/18 05:53 Hgb 10.9 g/dL (12.0-16.0) L 11/19/18 05:53 Hct 32.9 % (36.0-46.0) L 11/19/18 05:53 MCV 93.5 fL (80.0-98.0) 11/19/18 05:53 MCH 31.0 pg (27.0-32.0) 11/19/18 05:53 MCHC 33.1 g/dL (31.0-37.0) 11/19/18 05:53 RDW Std Deviation 47.0 fl (28.0-62.0) 11/19/18 05:53 RDW Coeff of Ismael 14 % (11.0-15.0) 11/19/18 05:53 Plt Count 192 K/uL (150-400) 11/19/18 05:53 MPV 10.30 fL (7.40-12.00) 11/19/18 05:53 Nucleated RBC % 0.0 /100WBC 11/19/18 05:53 Nucleated RBCs # 0 K/uL 11/19/18 05:53 Blood Type A POSITIVE 11/19/18 05:53 Antibody Screen NEGATIVE 11/19/18 05:53 - Allergies Allergies/Adverse Reactions: Allergies Allergy/AdvReac Type Severity Reaction Status Date / Time No Known Allergies Allergy Verified 11/14/18 12:13 - Blood Blood Available: No - Anesthesia Plan Pre-Op Medication Ordered: None - Acknowledgements Anesthesia Type Planned: General Anesthesia (probable spinal duramorph before patient wakes up) Pt an Appropriate Candidate for the Planned Anesthesia: Yes Alternatives and Risks of Anesthesia Discussed w Pt/Guardian: Yes Pt/Guardian Understands and Agrees with Anesthesia Plan: Yes PreAnesthesia Questionnaire - Past Health History Medical/Surgical History: Denies Medical/Surgical History HEENT History: Reports: Other (See Below) Other HEENT History: hx of strep throat Cardiovascular History: Reports: None Respiratory History: Reports: None Gastrointestinal History: Reports: None Other Gastrointestinal History: occasional heartburn only with Genitourinary History: Reports: None 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: Musculoskeletal History: Reports: None Other Musculoskeletal History: hx fx wrist Neurological History: Reports: None Psychiatric History: Reports: None Endocrine/Metabolic History: Reports: None Hematologic History: Reports: None Immunologic History: Reports: None Oncologic (Cancer) History: Reports: None Dermatologic History: Reports: None - Infectious Disease History Infectious Disease History: Reports: Chicken Pox - Past Surgical History Head Surgeries/Procedures: Reports: None HEENT Surgical History: Reports: None Cardiovascular Surgical History: Reports: None Respiratory Surgical History: Reports: None Female Surgical History: Reports: Section Endocrine Surgical History: Reports: None Neurological Surgical History: Reports: None Musculoskeletal Surgical History: Reports: None Oncologic Surgical History: Reports: None Dermatological Surgical History: Reports: None - SUBSTANCE USE Smoking Status *Q: Current Every Day Smoker Tobacco Use Within Last Twelve Months: Smokeless Tobacco, Other (See Below) Second Hand Smoke Exposure: Yes Recreational Drug Use History: No - HOME MEDS Home Medications: Home Meds Acetaminophen/Diphenhydramine [Tylenol Pm Ex-Strength Caplet] 1 tab PO BEDTIME PRN 11/14/18 [History] PNV95/Ferrous Fumarate/FA [ Vitamin Tablet] 1 tab PO DAILY 11/14/18 [ History] - CURRENT (IN HOUSE) MEDS Current Meds: Current Medications Lactated Ringer's (Ringers, Lactated) 1,000 mls @ 500 mls/hr IV BOLUS HELEN Last Admin: 11/19/18 06:00 Dose: 999 mls/hr Oxytocin/Sodium Chloride (Oxytocin 30 Unit/500 Ml-Ns) 30 unit in 500 mls @ 250 mls/hr IV TITRATE [facility] Ondansetron HCl (Zofran) 4 mg IVPUSH Q6H PRN PRN Reason: Nausea/Vomiting Sodium Chloride (Saline Flush) 10 ml FLUSH ASDIRECTED PRN PRN Reason: Keep Vein Open Sodium Chloride (Saline Flush) 2.5 ml FLUSH ASDIRECTED PRN PRN Reason: Keep Vein Open Sodium Chloride (Normal Saline) 10 ml IV ASDIRECTED PRN PRN Reason: IV Use Discontinued Medications Citric Acid/Sodium Citrate (Bicitra Solution) 30 ml PO ONETIME ONE Stop: 11/19/18 05:05 Cefazolin Sodium/Dextrose 1 gm (/ Premix) 50 mls @ 100 mls/hr IV ONETIME ONE Stop: 11/19/18 05:33
[2018-11-19] MEDS ORDERED: Oxytocin/0.9 % Sodium Chloride 30 UNIT/500 ML BAG ONE ×2 (07:25→09:12)
[2018-11-19] MEDS ORDERED: Morphine PF 10 MG/10 ML SDV ONE (07:26)
[2018-11-19] MEDS ORDERED: EPINEPHrine 1 MG/ML SDV ONE (07:28)
[2018-11-19] MEDS ORDERED: Sodium Chloride 0.9% 20 ML ONE (07:40)
[2018-11-19] MEDS ORDERED: ePHEDrine 50 MG/ML SDV ONE (07:40)
[2018-11-19] MEDS ORDERED: fentaNYL 250 MCG/5 ML SDV ONE (07:41)
[2018-11-19] MEDS ORDERED: Propofol 200 MG/20 ML SDV ONE (07:41)
[2018-11-19] MEDS ORDERED: Lidocaine 2% 5 ML SDV ONE (07:41)
[2018-11-19] MEDS ORDERED: Ondansetron 4 MG/2 ML SDV ONE (07:41)
[2018-11-19] MEDS ORDERED: Midazolam 1 MG/ML 2 ML SDV ONE (07:44)
[2018-11-19] MEDS ORDERED: ceFAZolin 2 GM in Premix Bag 1 BAG IV ONE (07:51)
[2018-11-19] MEDS ORDERED: Citric Acid/Sodium Citrate Solution 30 ML Cup ONE (07:52)
[2018-11-19] MEDS ORDERED: Glycopyrrolate 0.2 MG/ML SDV ONE (09:09)
[2018-11-19] MEDS ORDERED: Neostigmine Methylsulfate 1 MG/ML 5 ML Syringe ONE (09:09)
[2018-11-19] MEDS ORDERED: diphenhydrAMINE 50 MG/ML SDV IVPUSH PRN ×2 (09:24→09:36)
[2018-11-19] MEDS ORDERED: Lanolin 100% Cream 7 GM Tube TOP PRN (09:24)
[2018-11-19] MEDS ORDERED: Bisacodyl 10 MG Supp RECTAL PRN (09:24)
[2018-11-19] MEDS ORDERED: Acetaminophen/oxyCODONE 325-5 MG Tab PO PRN ×2 (09:24→09:36)
[2018-11-19] MEDS ORDERED: Ibuprofen 800 MG Tab PO PRN (09:24)
[2018-11-19] MEDS ORDERED: Lactated Ringers 1,000 ML IV SCH (09:30)
--- NOTE | 2018-11-19 09:30 | PCM.OPNOTE ---
- General Post-Op/Procedure Note Date of Surgery/Procedure: 11/19/18 Operative Procedure(s): Repeat Lower transverse Findings: Live female delivered at 825am , 9/9 weight 3190g Pre Op Diagnosis: 23 @ 39w2d for repeat Post-Op Diagnosis: same Anesthesia Technique: General ET Tube Primary Surgeon: Sha Schofield Fluid Replacement, Intraop: 2,900 Output, Urine Amount: 275 EBL in mLs: 500 Complications: None Condition: Good Free Text/Narrative:: Intake & Output 11/18/18 11/19/18 11/19/18 22:59 06:59 14:59 Output Total 275 Balance -275
[2018-11-19] MEDS ORDERED: fentaNYL 100 MCG/2 ML SDV IVPUSH PRN (09:36)
[2018-11-19] MEDS ORDERED: Naloxone 0.4 MG/ML Syringe IVPUSH PRN (09:36)
[2018-11-19] MEDS ORDERED: Nalbuphine 10 MG/1 ML Vial IVPUSH PRN (09:36)
[2018-11-19] MEDS: Ketorolac 30 MG/ML SDV IVPUSH SCH ×3 (09:58→21:46)
[2018-11-19] MEDS ORDERED: Methylergonovine 0.2 MG/1 ML Amp IM PRN (14:48)
[2018-11-19] MEDS: Docusate Sodium 100 MG Cap PO SCH (20:53)
--- NOTE | 2018-11-20 01:58 | OR ---
SURGEON: RONEN FAGAN DATE OF PROCEDURE:11/19/2018 PREOPERATIVE DIAGNOSIS: A 23-year-old 5, para 4, at 39 weeks , history of previous section desiring section. Hx of PTSD declines regional and wants General anaesthesia POSTOPERATIVE DIAGNOSIS: A 23-year-old 5, para 4, at 39 weeks , history of previous section desiring section. PROCEDURE: Repeat low segment section. ANAESTHESIA: General ESTIMATED BLOOD LOSS: 500. IV FLUID: 2900. URINE OUTPUT: 275. NOTES AND FINDINGS: Note some finding was a live female delivered at 8:25 a.m. score is 9 and 9. Weight is 3190 g. DESCRIPTION OF PROCEDURE: The patient was taken to the operating room, where general anesthesia was performed without difficulty. She was prepared and draped in the dorsal supine position with a leftward tilt. A Pfannenstiel skin incision was made with a scalpel and carried down to the fascia with the Bovie. The fascia was incised and extended laterally. Fascia was extended from the rectus muscle. Rectus muscle was from the underlying peritoneum, and entered with the aid of a hemostat. The rectus muscle was then in the midline down to the level of pubic symphysis. The peritoneum was then opened with upward stretching, and the uterine segment was observed. The bladder flap was created. The lower uterine incision was made with a scalpel and extended upwards and laterally. The fetus was in cephalic position was brought to the level of the incision and delivered without difficulty. Cord was clamped and cut. The infant was handed over to the awaiting textile designer. The placenta was delivered via controlled cord traction. Cord gases were obtained. The uterine incision was then cleaned with laparotomy sponges. The incision was closed in 2 layers, first layer with 0 Vicryl and second layer with 0 Monocryl. Then, the Wisam retractor was removed. Bladder base was inspected. A moistened laparotomy sponge was used to clean the gutters. The peritoneum was approximated. The rectus muscle was also approximated. The fascia was closed with 0 Vicryl, and the skin was closed with 3-0 Monocryl on a Shabbir needle. All instrument and pad count were correct x2. EDIL / SUBHA /[id number] DWIGHT
[2018-11-20] MEDS: Ketorolac 30 MG/ML SDV IVPUSH SCH ×2 (03:00→09:47)
--- NOTE | 2018-11-20 07:53 | PCM48HPAN ---
Post Anesthesia Note - EVALUATION WITHIN 48HRS OF ANESTHETIC Vital Signs in Normal Range: Yes Patient Participated in Evaluation: Yes Respiratory Function Stable: Yes Airway Patent: Yes Cardiovascular Function Stable: Yes Hydration Status Stable: Yes Pain Control Satisfactory: Yes Nausea and Vomiting Control Satisfactory: Yes Mental Status Recovered: Yes Resp Rate: 16
--- NOTE | 2018-11-20 09:08 | PCM.PNPP ---
- General Info Date of Service: 11/20/18 Subjective Update: 23 yo P 5 s/p repeat , not really ambulating , has fair pain control , not normal lochia Functional Status: Reports: Pain Controlled, Tolerating Diet, Ambulating, Urinating - Review of Systems General: Reports: No Symptoms HEENT: Reports: No Symptoms Pulmonary: Reports: No Symptoms Cardiovascular: Reports: No Symptoms Gastrointestinal: Reports: No Symptoms Genitourinary: Reports: No Symptoms Musculoskeletal: Reports: No Symptoms Skin: Reports: No Symptoms Neurological: Reports: No Symptoms Psychiatric: Reports: No Symptoms - General Info Date of Service: 11/20/18 - Patient Data Vital Signs - Most Recent: Last Vital Signs Temp 37.2 C 11/19/18 23:00 Pulse 89 11/20/18 07:25 Resp 16 11/20/18 07:53 BP 90/49 L 11/20/18 07:25 Pulse Ox 95 11/20/18 07:25 Weight - Most Recent: 77.111 kg I&O - Last 24 Hours: Intake & Output 11/19/18 11/20/18 11/20/18 22:59 06:59 14:59 Intake Total 360 Output Total 500 1200 Balance -500 -840 Lab Results - Last 24 Hours: Laboratory Results - last 24 hr 11/19/18 11/20/18 Range/Units 08:26 05:35 Hgb 10.6 L (12.0-16.0) g/dL Hct 32.0 L (36.0-46.0) % Cord ABG pH 7.397 H (7.18-7.38) Cord ABG Base Excess -2 (-10--2) Cord VBG pH 7.342 (7.25-7.45) Cord VBG Base Excess -3 (-10--2) Med Orders - Current: Current Medications Bisacodyl (Dulcolax) 10 mg RECTAL ONETIME PRN PRN Reason: Constipation Diphenhydramine HCl (Benadryl) 25 mg IVPUSH Q6H PRN PRN Reason: Itching or Nausea Diphenhydramine HCl (Benadryl) 25 mg IVPUSH Q4H PRN PRN Reason: Itching Stop: 11/20/18 09:37 Docusate Sodium (Colace) 100 mg PO BID HELEN Last Admin: 11/19/18 20:53 Dose: 100 mg Emollient Ointment (Lansinoh Hpa) 0 gm TOP ASDIRECTED PRN PRN Reason: Sore Nipples Fentanyl (Sublimaze) 50 mcg IVPUSH Q1H PRN PRN Reason: Pain (severe 7-10) Lactated Ringer's (Ringers, Lactated) 1,000 mls @ 500 mls/hr IV BOLUS [facility] Last Admin: 11/19/18 07:53 Dose: 999 mls/hr Oxytocin/Sodium Chloride (Oxytocin 30 Unit/500 Ml-Ns) 30 unit in 500 mls @ 250 mls/hr IV TITRATE [facility] Lactated Ringer's (Ringers, Lactated) 1,000 mls @ 125 mls/hr IV ASDIRECTED [facility] Ibuprofen (Motrin) 800 mg PO Q8H PRN PRN Reason: mild pain or fever Ketorolac Tromethamine (Toradol) 30 mg IVPUSH Q6H [facility] Stop: 11/20/18 09:31 Last Admin: 11/20/18 03:00 Dose: 30 mg Methylergonovine Maleate (Methergine) 0.2 mg IM Q4H PRN PRN Reason: Bleeding Last Admin: 11/19/18 15:01 Dose: 0.2 mg Nalbuphine HCl (Nubain) 5 mg IVPUSH ASDIRECTED PRN PRN Reason: Itching Naloxone HCl (Narcan) 0.1 mg IVPUSH ONETIME PRN PRN Reason: Respiratory Depression Stop: 11/20/18 09:37 Ondansetron HCl (Zofran) 4 mg IVPUSH Q6H PRN PRN Reason: Nausea/Vomiting Ondansetron HCl (Zofran) 4 mg IVPUSH Q4H PRN PRN Reason: Nausea/Vomiting Ondansetron HCl (Zofran) 4 mg IVPUSH Q6H PRN PRN Reason: Nausea Oxycodone/Acetaminophen (Percocet 325-5 Mg) 1 tab PO Q4H PRN PRN Reason: Pain (moderate 4-6) Oxycodone/Acetaminophen (Percocet 325-5 Mg) 2 tab PO Q4H PRN PRN Reason: Pain (moderate 4-6) Oxycodone/Acetaminophen (Percocet 325-5 Mg) 2 tab PO Q6H PRN PRN Reason: Pain (moderate 4-6) Last Admin: 11/19/18 20:52 Dose: 2 tab Sertraline HCl (Zoloft) 50 mg PO DAILY HELEN Sodium Chloride (Saline Flush) 10 ml FLUSH ASDIRECTED PRN PRN Reason: Keep Vein Open Sodium Chloride (Saline Flush) 2.5 ml FLUSH ASDIRECTED PRN PRN Reason: Keep Vein Open Sodium Chloride (Normal Saline) 10 ml IV ASDIRECTED PRN PRN Reason: IV Use Discontinued Medications Citric Acid/Sodium Citrate (Bicitra Solution) 30 ml PO ONETIME ONE Stop: 11/19/18 05:05 Last Admin: 11/19/18 07:53 Dose: 30 ml Citric Acid/Sodium Citrate (Bicitra Solution) Confirm Administered Dose 30 ml .ROUTE .STK-MED ONE Stop: 11/19/18 07:53 Last Admin: 11/19/18 17:22 Dose: Not Given Ephedrine Sulfate (Ephedrine Sulfate) Confirm Administered Dose 50 mg .ROUTE .STK-MED ONE Stop: 11/19/18 07:41 Epinephrine HCl (Adrenalin) Confirm Administered Dose 1 mg .ROUTE .STK-MED ONE Stop: 11/19/18 07:29 Fentanyl (Sublimaze) Confirm Administered Dose 250 mcg .ROUTE .STK-MED ONE Stop: 11/19/18 07:42 Glycopyrrolate (Robinul) Confirm Administered Dose 0.4 mg .ROUTE .STK-MED ONE Stop: 11/19/18 09:10 Cefazolin Sodium/Dextrose 1 gm (/ Premix) 50 mls @ 100 mls/hr IV ONETIME ONE Stop: 11/19/18 05:33 Oxytocin/Sodium Chloride (Oxytocin 30 Unit/500 Ml-Ns) Confirm Administered Dose 30 unit in 500 mls @ as directed .ROUTE .STK-MED ONE Stop: 11/19/18 07:26 Sodium Chloride (Normal Saline) Confirm Administered Dose 20 mls @ as directed .ROUTE .STK-MED ONE Stop: 11/19/18 07:41 Cefazolin Sodium/Dextrose 2 gm (/ Premix) 50 mls @ 100 mls/hr IV ONETIME ONE Stop: 11/19/18 08:20 Last Admin: 11/19/18 17:21 Dose: Not Given Cefazolin Sodium/Dextrose (Ancef) Confirm Administered Dose 50 mls @ as directed .ROUTE .STK-MED ONE Stop: 11/19/18 07:51 Oxytocin/Sodium Chloride (Oxytocin 30 Unit/500 Ml-Ns) Confirm Administered Dose 30 unit in 500 mls @ as directed .ROUTE .STK-MED ONE Stop: 11/19/18 09:13 Lidocaine (Xylocaine-Mpf 2%) Confirm Administered Dose 5 ml .ROUTE .STK-MED ONE Stop: 11/19/18 07:42 Midazolam HCl (Versed 1 Mg/Ml) Confirm Administered Dose 2 mg .ROUTE .STK-MED ONE Stop: 11/19/18 07:45 Morphine Sulfate (Duramorph Pf) Confirm Administered Dose 10 mg .ROUTE .STK-MED ONE Stop: 11/19/18 07:27 Neostigmine Methylsulfate (Neostigmine) Confirm Administered Dose 5 mg .ROUTE .STK-MED ONE Stop: 11/19/18 09:10 Ondansetron HCl (Zofran) Confirm Administered Dose 4 mg .ROUTE .STK-MED ONE Stop: 11/19/18 07:42 Propofol (Diprivan 20 Ml) Confirm Administered Dose 200 mg .ROUTE .STK-MED ONE Stop: 11/19/18 07:42 Succinylcholine Chloride (Succinylcholine Chloride) Confirm Administered Dose 200 mg .ROUTE .STK-MED ONE Stop: 11/19/18 07:41 - Interaction Support Person: - Recovery Exam Fundal Tone: Firm Fundal Level: 2 Fingerbreadths Below Umbilicus Fundal Placement: Midline Lochia Amount: Scant Lochia Color: Rubra/Red Perineum Description: Intact, Minimal Bruising/Swelling Episiotomy/Laceration: None Bladder Status: Indwelling Catheter in Place Urinary Elimination: Indwelling Catheter - Exam General: Alert, Oriented HEENT: Pupils Equal Neck: Supple Lungs: Clear to Auscultation Cardiovascular: Regular Rate, Regular Rhythm GI/Abdominal Exam: Normal Bowel Sounds Extremities: Normal Inspection Neurological: No New Focal Deficit Psy/Mental Status: Alert - Problem List & Annotations (1) delivery delivered SNOMED Code(s): 547867351 Code(s): O82 - ENCOUNTER FOR DELIVERY WITHOUT INDICATION Status: Acute Current Visit: Yes - Problem List Review Problem List Initiated/Reviewed/Updated: Yes - My Orders Last 24 Hours: My Active Orders 11/19/18 09:24 Patient Status [ADT] Routine Ambulate [RC] PER UNIT ROUTINE Communication Order [RC] PER UNIT ROUTINE Communication Order [RC] PER UNIT ROUTINE Communication Order [RC] Per Unit Routine May Shower [RC] ASDIRECTED Notify Provider Intake and Out [RC] ASDIRECTED RT Incentive Spirometry [RC] Q2HWA Acetaminophen/oxyCODONE [Percocet 325-5 MG] 1 tab PO Q4H PRN Acetaminophen/oxyCODONE [Percocet 325-5 MG] 2 tab PO Q4H PRN Bisacodyl [Dulcolax] 10 mg RECTAL ONETIME PRN Ibuprofen [Motrin] 800 mg PO Q8H PRN Lanolin [Lansinoh HPA] See Dose Instructions TOP ASDIRECTED PRN Ondansetron [Zofran] 4 mg IVPUSH Q4H PRN diphenhydrAMINE [Benadryl] 25 mg IVPUSH Q6H PRN Assess Lochia [WOMSER] Per Unit Routine Assess Uterine Involution [WOMSER] Per Unit Routine Breast Pump [WOMSER] Per Unit Routine Peripheral IV Discontinue [OM.PC] Routine Sequential Compression Device [OM.PC] Per Unit Routine 11/19/18 09:25 Antiembolic Devices [RC] PER UNIT ROUTINE 11/19/18 09:30 Ketorolac [Toradol] 30 mg IVPUSH Q6H Lactated Ringers [Ringers, Lactated] 1,000 ml IV ASDIRECTED 11/19/18 14:48 Methylergonovine [Methergine] 0.2 mg IM Q4H PRN 11/19/18 21:00 Docusate Sodium [Colace] 100 mg PO BID 11/19/18 Lunch Regular Diet [DIET] 11/20/18 09:00 Sertraline [Zoloft] 50 mg PO DAILY - Assessment Assessment:: 23 yo P 5 s/p repeat , not really ambulating , has fair pain control , not normal lochia - Plan Plan:: Encourage ambulation Pain control as needed Want to be started on antidepressant will start on sertaline Incentive spirometry ROutine care
[2018-11-20] MEDS: Docusate Sodium 100 MG Cap PO SCH ×2 (09:47→21:07)
[2018-11-20] MEDS: Sertraline 50 MG Tab PO SCH (09:47)
[2018-11-20] MEDS ORDERED: Sodium Chloride 0.9% 1,000 ML IV ONE (13:25)
[2018-11-20] MEDS: Acetaminophen/oxyCODONE 325-5 MG Tab PO PRN ×2 (18:02→22:05)
[2018-11-21] MEDS: Acetaminophen/oxyCODONE 325-5 MG Tab PO PRN ×2 (06:07→12:29)
[2018-11-21 07:51] VITALS: BP 88/53
[2018-11-21] MEDS: Docusate Sodium 100 MG Cap PO SCH (09:42)
[2018-11-21] MEDS: Sertraline 50 MG Tab PO SCH (09:42)
--- NOTE | 2018-11-21 09:47 | PCM.PNPP ---
- General Info Date of Service: 11/21/18 Subjective Update: 23 yo P5 s/p repeat ambulating , voiding and tolerating Functional Status: Reports: Pain Controlled, Tolerating Diet, Ambulating, Urinating - Review of Systems General: Reports: No Symptoms HEENT: Reports: No Symptoms Pulmonary: Reports: No Symptoms Cardiovascular: Reports: No Symptoms Gastrointestinal: Reports: No Symptoms Genitourinary: Reports: No Symptoms Musculoskeletal: Reports: No Symptoms Skin: Reports: No Symptoms Neurological: Reports: No Symptoms Psychiatric: Reports: No Symptoms - General Info Date of Service: 11/21/18 - Patient Data Vital Signs - Most Recent: Last Vital Signs Temp 36.2 C 11/21/18 07:05 Pulse 62 11/21/18 07:05 Resp 16 11/21/18 07:05 BP 88/53 L 11/21/18 07:05 Pulse Ox 96 11/21/18 07:05 Weight - Most Recent: 77.111 kg Med Orders - Current: Current Medications Bisacodyl (Dulcolax) 10 mg RECTAL ONETIME PRN PRN Reason: Constipation Diphenhydramine HCl (Benadryl) 25 mg IVPUSH Q6H PRN PRN Reason: Itching or Nausea Docusate Sodium (Colace) 100 mg PO BID [facility] Last Admin: 11/21/18 09:42 Dose: 100 mg Emollient Ointment (Lansinoh Hpa) 0 gm TOP ASDIRECTED PRN PRN Reason: Sore Nipples Fentanyl (Sublimaze) 50 mcg IVPUSH Q1H PRN PRN Reason: Pain (severe 7-10) Lactated Ringer's (Ringers, Lactated) 1,000 mls @ 500 mls/hr IV BOLUS [facility] Last Admin: 11/19/18 07:53 Dose: 999 mls/hr Oxytocin/Sodium Chloride (Oxytocin 30 Unit/500 Ml-Ns) 30 unit in 500 mls @ 250 mls/hr IV TITRATE [facility] Lactated Ringer's (Ringers, Lactated) 1,000 mls @ 125 mls/hr IV ASDIRECTED [facility] Ibuprofen (Motrin) 800 mg PO Q8H PRN PRN Reason: mild pain or fever Last Admin: 11/20/18 18:02 Dose: 800 mg Methylergonovine Maleate (Methergine) 0.2 mg IM Q4H PRN PRN Reason: Bleeding Last Admin: 11/19/18 15:01 Dose: 0.2 mg Nalbuphine HCl (Nubain) 5 mg IVPUSH ASDIRECTED PRN PRN Reason: Itching Ondansetron HCl (Zofran) 4 mg IVPUSH Q6H PRN PRN Reason: Nausea/Vomiting Ondansetron HCl (Zofran) 4 mg IVPUSH Q4H PRN PRN Reason: Nausea/Vomiting Ondansetron HCl (Zofran) 4 mg IVPUSH Q6H PRN PRN Reason: Nausea Oxycodone/Acetaminophen (Percocet 325-5 Mg) 1 tab PO Q4H PRN PRN Reason: Pain (moderate 4-6) Oxycodone/Acetaminophen (Percocet 325-5 Mg) 2 tab PO Q4H PRN PRN Reason: Pain (moderate 4-6) Last Admin: 11/21/18 06:07 Dose: 2 tab Oxycodone/Acetaminophen (Percocet 325-5 Mg) 2 tab PO Q6H PRN PRN Reason: Pain (moderate 4-6) Last Admin: 11/19/18 20:52 Dose: 2 tab Sertraline HCl (Zoloft) 50 mg PO DAILY HELEN Last Admin: 11/21/18 09:42 Dose: 50 mg Sodium Chloride (Saline Flush) 10 ml FLUSH ASDIRECTED PRN PRN Reason: Keep Vein Open Sodium Chloride (Saline Flush) 2.5 ml FLUSH ASDIRECTED PRN PRN Reason: Keep Vein Open Sodium Chloride (Normal Saline) 10 ml IV ASDIRECTED PRN PRN Reason: IV Use Discontinued Medications Citric Acid/Sodium Citrate (Bicitra Solution) 30 ml PO ONETIME ONE Stop: 11/19/18 05:05 Last Admin: 11/19/18 07:53 Dose: 30 ml Citric Acid/Sodium Citrate (Bicitra Solution) Confirm Administered Dose 30 ml .ROUTE .STK-MED ONE Stop: 11/19/18 07:53 Last Admin: 11/19/18 17:22 Dose: Not Given Diphenhydramine HCl (Benadryl) 25 mg IVPUSH Q4H PRN PRN Reason: Itching Stop: 11/20/18 09:37 Ephedrine Sulfate (Ephedrine Sulfate) Confirm Administered Dose 50 mg .ROUTE .STK-MED ONE Stop: 11/19/18 07:41 Epinephrine HCl (Adrenalin) Confirm Administered Dose 1 mg .ROUTE .STK-MED ONE Stop: 11/19/18 07:29 Fentanyl (Sublimaze) Confirm Administered Dose 250 mcg .ROUTE .STK-MED ONE Stop: 11/19/18 07:42 Glycopyrrolate (Robinul) Confirm Administered Dose 0.4 mg .ROUTE .STK-MED ONE Stop: 11/19/18 09:10 Cefazolin Sodium/Dextrose 1 gm (/ Premix) 50 mls @ 100 mls/hr IV ONETIME ONE Stop: 11/19/18 05:33 Oxytocin/Sodium Chloride (Oxytocin 30 Unit/500 Ml-Ns) Confirm Administered Dose 30 unit in 500 mls @ as directed .ROUTE .STK-MED ONE Stop: 11/19/18 07:26 Sodium Chloride (Normal Saline) Confirm Administered Dose 20 mls @ as directed .ROUTE .STK-MED ONE Stop: 11/19/18 07:41 Cefazolin Sodium/Dextrose 2 gm (/ Premix) 50 mls @ 100 mls/hr IV ONETIME ONE Stop: 11/19/18 08:20 Last Admin: 11/19/18 17:21 Dose: Not Given Cefazolin Sodium/Dextrose (Ancef) Confirm Administered Dose 50 mls @ as directed .ROUTE .STK-MED ONE Stop: 11/19/18 07:51 Oxytocin/Sodium Chloride (Oxytocin 30 Unit/500 Ml-Ns) Confirm Administered Dose 30 unit in 500 mls @ as directed .ROUTE .STK-MED ONE Stop: 11/19/18 09:13 Sodium Chloride (Normal Saline) 1,000 mls @ 999 mls/hr IV .Bolus ONE Stop: 11/20/18 14:25 Last Admin: 11/20/18 13:30 Dose: 999 mls/hr Ketorolac Tromethamine (Toradol) 30 mg IVPUSH Q6H [facility]EN Stop: 11/20/18 09:31 Last Admin: 11/20/18 09:47 Dose: 30 mg Lidocaine (Xylocaine-Mpf 2%) Confirm Administered Dose 5 ml .ROUTE .STK-MED ONE Stop: 11/19/18 07:42 Midazolam HCl (Versed 1 Mg/Ml) Confirm Administered Dose 2 mg .ROUTE .STK-MED ONE Stop: 11/19/18 07:45 Morphine Sulfate (Duramorph Pf) Confirm Administered Dose 10 mg .ROUTE .STK-MED ONE Stop: 11/19/18 07:27 Naloxone HCl (Narcan) 0.1 mg IVPUSH ONETIME PRN PRN Reason: Respiratory Depression Stop: 11/20/18 09:37 Neostigmine Methylsulfate (Neostigmine) Confirm Administered Dose 5 mg .ROUTE .STK-MED ONE Stop: 11/19/18 09:10 Ondansetron HCl (Zofran) Confirm Administered Dose 4 mg .ROUTE .STK-MED ONE Stop: 11/19/18 07:42 Propofol (Diprivan 20 Ml) Confirm Administered Dose 200 mg .ROUTE .STK-MED ONE Stop: 11/19/18 07:42 Succinylcholine Chloride (Succinylcholine Chloride) Confirm Administered Dose 200 mg .ROUTE .STK-MED ONE Stop: 11/19/18 07:41 - Interaction Support Person: - Recovery Exam Fundal Tone: Firm Fundal Level: 2 Fingerbreadths Below Umbilicus Fundal Placement: Midline Lochia Amount: Scant Lochia Color: Rubra/Red Perineum Description: Intact, Minimal Bruising/Swelling Episiotomy/Laceration: None Bladder Status: Voiding Urinary Elimination: Indwelling Catheter - Exam General: Alert HEENT: Pupils Equal Neck: Supple Lungs: Clear to Auscultation Cardiovascular: Regular Rate, Regular Rhythm GI/Abdominal Exam: Normal Bowel Sounds Extremities: Normal Inspection Wound/Incisions: Dressing Dry and Intact Neurological: No New Focal Deficit - Problem List & Annotations (1) delivery delivered SNOMED Code(s): 660107718 Code(s): O82 - ENCOUNTER FOR DELIVERY WITHOUT INDICATION Status: Acute Current Visit: Yes - Problem List Review Problem List Initiated/Reviewed/Updated: Yes - My Orders Last 24 Hours: My Active Orders 11/20/18 09:00 Sertraline [Zoloft] 50 mg PO DAILY - Assessment Assessment:: 23 yo P 5 s/p repeat POD 2 ambulating , voiding and tolerating regular diet - Plan Plan:: Discharge home
== END 2018-11-21 12:30 | disposition home or self-care (01) | DRG 540 ==
LOC: MW.OB 04:58
PROVIDERS: ADMIT Obstetrics & Gynecology; ATTEND Obstetrics & Gynecology
PROC: 10D00Z1 Extraction of Products of Conception, Low, Open Approach (ICD-10-PCS; principal; 2018-11-19)
DX: O34.211 Maternal care for low transverse scar from previous cesarean delivery (principal); O99.344 Other mental disorders complicating childbirth; F32.9 Major depressive disorder, single episode, unspecified; O99.334 Smoking (tobacco) complicating childbirth; F17.200 Nicotine dependence, unspecified, uncomplicated; F43.10 Post-traumatic stress disorder, unspecified; Z3A.39 39 weeks gestation of pregnancy; Z37.0 Single live birth
CPT/HCPCS: 36415; 59025; 82803; 85014; 85018; 85027; 86850; 86900; 86901; A9270-GY; J0171; J0330; J0690; J1885; J2001; J2210; J2250; J2270; J2405; J2590; J2704; J3010; J3490; J7040; J7120